=== PATIENT | male | born 1940 | race Two or more races ===

== ENCOUNTER 2019-11-30 09:18 | Emergency (ER) | payer OTHER ==
[2019-11-30 09:50] VITALS: BP 131/89; PULSE 90; TEMP 98; BMI 24.9
[2019-11-30] MEDS ORDERED: ACETAMINOPHEN 1000 MG/100 ML VIAL (NON FORMULARY) IVPB ONE (09:54)
[2019-11-30] MEDS ORDERED: SODIUM CHLORIDE 1,000 ML IV STA (09:54)
[2019-11-30] MEDS ORDERED: ACETAMINOPHEN INJECTION 100 ML IVPB ONE (10:18)
[2019-11-30 10:36] LABS: BASO % 0.2 % (0-2.0); EOS % 0.9 % (0-4.5); HEMATOCRIT 45.2 % (35.4-49); HEMOGLOBIN 15.1 GM/dL (11.7-16.9); LYMPH % 35.4 % (8-40); MCH 29.9 pg (25.7-33.7); MCHC 33.4 g/dl (32.0-35.9); MEAN CELL VOLUME 89.6 fl (80-96); MEAN PLT VOLUME 6.9 fl (7.5-11.1); MONO % 7.4 % (3.8-10.2); NEUT % 56.1 % (42.8-82.8); PLATELET COUNT 271 K/MM3 (134-434); RBC 5.04 M/mm3 (4.00-5.60); RDW 12.5 % (11.9-15.9); URINE APPEARANCE CLEAR; URINE BILIRUBIN NEGATIVE (NEGATIVE); URINE COLOR YELLOW; URINE GLUCOSE (UA) NEGATIVE (NEGATIVE); URINE KETONE NEGATIVE (NEGATIVE); URINE LEUK ESTERASE NEGATIVE (NEGATIVE); URINE NITRITE NEGATIVE (NEGATIVE); URINE PROTEIN NEGATIVE (NEGATIVE); URINE UROBILINOGEN 0.2 mg/dL (0.2-1.0); WHITE BLOOD COUNT 5.8 K/mm3 (4.0-10.0)
[2019-11-30 11:05] LABS: ALBUMIN 3.5 g/dl (3.4-5.0); BILIRUBIN,TOTAL 0.5 mg/dL (0.2-1); BLOOD UREA NITROGEN 24.3 mg/dL (7-18); CALCIUM 9.1 mg/dL (8.5-10.1); TOT PROT 7.3 g/dl (6.4-8.2)
--- NOTE | 2019-11-30 12:10 | PDOC ---
Documentation entered by Jesika Broderick SCRIBE, acting as scribe for Tressa Alejandro MD. Tressa Alejandro MD: This documentation has been prepared by the Meggan erickson Adrianna, SCRIBE, under my direction and personally reviewed by me in its entirety. I confirm that the documentation accurately reflects all work, treatment, procedures, and medical decision making performed by me. History of Present Illness - General Chief Complaint: Pain Stated Complaint: ABD. PAIN History Source: Patient - History of Present Illness Initial Comments: The patient is a 79 year old male, with a significant PMH of BPH and HTN, who presents to the ED for evaluation of groin pain for 4 months, worse in the past 4 weeks. Patient complains of a right inguinal hernia for the past 4 months, which has become progressively more painful recently. He rates his pain as a 8-9 /10 at rest, is exacerbated with walking, and he notes he has been unable to walk because of the pain. Patient endorses associated occasional nausea, diarrhea, and chills. Last night, the patient notes the pain became so severe that he could not get up, which prompted his visit to the ED for further evaluation. Denies fever, chest pain, SOB, vomit, constipation, flank pain, back pain, dysuria, hematuria. Allergies: NKA, NKDA Surgical History: None reported Social History: Denies EtOH, tobacco, or illicit drug use PCP: Dr. Marko Duran Past History - Past Medical History Allergies/Adverse Reactions: Allergies Allergy/AdvReac Type Severity Reaction Status Date / Time No Known Allergies Allergy Verified 11/30/19 09:47 Home Medications: Ambulatory Orders Ibuprofen [Motrin -] 400 mg PO TID PRN #21 tablet 11/30/19 Methocarbamol [Robaxin -] 500 mg PO BID PRN #14 tablet 11/30/19 traMADol HCL [Ultram] 25 mg PO Q8H PRN #10 tablet MDD 2 11/30/19 Review of Systems - Review of Systems Comments:: General: +Occasional chills. No fevers or weakness, no weight loss HEENT: No change in vision. No sore throat,. No ear pain CardioVascular: No chest pain or shortness of breath Respiratory: No cough, or wheezing. Gastrointestinal: +Painful right inguinal hernia, that is exacerbated with walking. +Occasional nausea. +Occasional diarrhea. No vomiting or constipation, No rectal bleeding Genitourinary: No dysuria, hematuria, or frequency Musculoskeletal: +Difficulty walking 2/2 inguinal pain. No joint or muscle swelling Neurologic: No headache, vertigo, dizziness or loss of consciousness Psychiatric: nor depression Skin: No rashes or easy bruising Endocrine: no increased thirst or abnormal weight change Allergic: no skin or latex allergy All other systems reviewed and normal *Physical Exam - Vital Signs Last Vital Signs Temp Pulse Resp BP Pulse Ox 98.0 F 90 16 131/89 97 11/30/19 09:39 11/30/19 09:39 11/30/19 09:39 11/30/19 09:39 11/30/19 09:39 - Physical Exam GENERAL: The patient is in no acute distress. HEAD: Normal with no signs of trauma. EYES: PERRLA, EOMI, sclera anicteric, conjunctiva clear. ENT: Ears normal, nares patent, oropharynx clear without exudates. Moist mucous membranes. NECK: Normal range of motion, supple without lymphadenopathy, JVD, or masses. LUNGS: Breath sounds equal, clear to auscultation bilaterally. No wheezes, and no crackles. HEART:Regular rate and rhythm, normal S1 and S2 without murmur, rub or gallop. ABDOMEN: +Right groin tenderness to palpation. Could not palpate an inguinal hernia. Soft, normoactive bowel sounds. No guarding, no rebound. EXTREMITIES: Normal range of motion, no edema. No clubbing or cyanosis. No erythema, or tenderness. NEUROLOGICAL: Cranial nerves II through XII grossly intact. Normal speech. No focal neurological deficits. MUSCULOSKELETAL: Back nontender to palpation, no CVA tenderness SKIN: Warm, Dry, normal turgor, no rashes or lesions noted. ED Treatment Course - LABORATORY CBC & Chemistry Diagram: 11/30/19 10:00 11/30/19 10:00 - ADDITIONAL ORDERS Additional order review: Laboratory Results 11/30/19 11/30/19 11/30/19 10:00 10:00 10:00 Sodium 136 Potassium 4.0 Chloride 105 Carbon Dioxide 26 Anion Gap 5 L BUN 24.3 H Creatinine 1.0 Est GFR (CKD-EPI)AfAm 83.77 Est GFR (CKD-EPI)NonAf 72.28 Random Glucose 127 H Lactic Acid 1.9 Calcium 9.1 Total Bilirubin 0.5 AST 15 ALT 31 Alkaline Phosphatase 62 Total Protein 7.3 Albumin 3.5 Urine Color Yellow Urine Appearance Clear Urine pH 5.0 Ur Specific [place] 1.027 Urine Protein Negative Urine Glucose (UA) Negative Urine Ketones Negative Urine Blood Negative Urine Nitrite Negative Urine Bilirubin Negative Urine Urobilinogen 0.2 Ur Leukocyte Esterase Negative 11/30/19 10:00 RBC 5.04 MCV 89.6 MCHC 33.4 RDW 12.5 MPV 6.9 L Neutrophils % 56.1 Lymphocytes % 35.4 Monocytes % 7.4 Eosinophils % 0.9 Basophils % 0.2 - RADIOLOGY Radiology Studies Ordered: Category Date Time Status ABDOMEN & PELVIS CT WITH CONTR [CT] Stat CT Scan 11/30/19 09:55 Ordered Radiograph Interpretation: EXAM#: TYPE/EXAM: RESULT: [id number] CT/ABDOMEN PELVIS CT WITH CONTR Right lower quadrant pain IMPRESSION: Bilateral renal cysts, as described above. Mild thickening of the urinary bladder wall likely due to arch and distention. Significantly enlarged prostate gland. Tiny fat-containing umbilical hernia. Otherwise, there is no CT evidence of an acute process in the abdomen and pelvis. Correlate clinically to determine further evaluation and follow-up. Reported By: Rohan Vieira MD 11/30/19 15:28 - Medications Given in the ED: ED Medications Discontinued Medications Generic Name Dose Route Start Last Admin Trade Name Freq PRN Reason Stop Dose Admin Acetaminophen 1,000 mg 11/30/19 09:54 11/30/19 10:29 Ofirmev Injection - IVPB 11/30/19 09:55 1,000 mg ONCE ONE Administration Medical Decision Making - Medical Decision Making 11/30/19 12:09 79-year-old male presenting to the emergency department with a complaint of right lower quadrant pain which is been present for the past 4 months. Patient presents today because his symptoms have worsened. Not associated with fevers or chills. Pain is occasionally associated with nausea, occasional vomiting, occasional diarrhea. Patient did mention his symptoms to the urologist who told him he would need to go to the hospital for follow-up. On examination Patient has right lower abdominal tenderness, no involuntary guarding, no rebound. No hernia is palpable. Testicular exam: No testicular tenderness, swelling. Uncircumcised male, no discharge, no lesions Laboratory Tests 0111/30/19 11/30/19 10:00 10:00 10:00 WBC 5.8 Hgb 15.1 Hct 45.2 Plt Count 271 BUN 24.3 H Creatinine 1.0 Urine Blood Negative Urine Nitrite Negative Ur Leukocyte Esterase Negative CT pendin11/30/19 16:25 CT demonstrates: Umbilical hernia L4, L5 degenerative changes Renal cyst All results reviewed with patient's daughter. I have asked him to follow-up with general surgery for the umbilical hernia. Have asked him to follow-up with his urologist given his CT shows an enlarged prostate. I have asked him to follow-up with a primary care physician. We will discharge with pain medications. We will asked patient to return to the ER for any other concerns or complaint Clinical impression: Umbilical hernia, initial presentation Right groin pain, initial presentation Discharge - Discharge Information Problems reviewed: Yes Clinical Impression/Diagnosis: Groin pain, chronic, right Umbilical hernia Qualifiers: Obstruction and gangrene presence: without obstruction or gangrene Qualified Code(s): K42.9 - Umbilical hernia without obstruction or gangrene Condition: Stable Disposition: HOME - Admission No - Follow up/Referral Referrals: Arnulfo Campbell [Primary Care Provider] - Madhu Avery MD [Staff Physician] - Lloyd Horton MD [Staff Physician] - - Patient Discharge Instructions Patient Printed Discharge Instructions: DI for Groin Strain, Abdominal Hernia Additional Instructions: Mr. Riya Montoya q erdht n ER sot Ju lutemi rishikoni rezultatet lonnieaja t skanimit t CT Ju do t duhet t ndiqeni me kirurgun e prgjithshm (Dr. Avery) pr hernie tuaj krthizore Ne angie isabell nj referim pr ju n K[employer] e [employer]. Daren do t'ju japin nj telefonat Ju lutemi prdorni ilae pr dhimbje si prshkruhet Kthehuni gregg n departamentin e urgjencs me symptomsDO simptoma t reja, t vazhdueshme ose prkeqsuese. Vazhdoni do edgard t prshkruar m par nancy mjeku cosme. Ju duhet t ndiqni mjekun tuaj fillestar sa m shpejt t jet e mundur n lidhje me vizitn e sotme t departamentit t urgjencs. Ju lutemi sigurohuni q mjeku juaj t rishikoj rezultatet e vlersimit aj urgjent. Faleminderit q erdht sot n departamentin e urgjencs pr kujdesin aj. Ishte knaqsi t shikoja sot. Ju lutemi doyle re se vlersimi juaj sht i PRFSHIR deri sa t ndiqni mjekun . Thank you for coming in to the ER today Please review your CT scan results You will need to follow up with the general surgeon (Dr. Avery) for your umbilical hernia We have made a referral for you to [facility]. They will give you a call Please use pain medications as prescribed Return to the emergency department immediately with ANY new, persistent or worsening symptoms. Continue any medications as previously prescribed by your physician. You should follow up with your primary doctor as soon as possible regarding today's emergency department visit. Please make sure your doctor reviews the results of your emergency evaluation. Thank you for coming to the Emergency Department today for your care. It was a pleasure to see you today. Please note that your evaluation is INCOMPLETE until you follow-up with your doctor. - Post Discharge Activity
== END 2019-11-30 17:39 | disposition home or self-care (01) ==
LOC: JER 09:18
PROC: 3E033NZ Introduction of Analgesics, Hypnotics, Sedatives into Peripheral Vein, Percutaneous Approach (ICD-10-PCS; principal; 2019-11-30)
DX: K42.9 Umbilical hernia without obstruction or gangrene (principal); N40.0 Benign prostatic hyperplasia without lower urinary tract symptoms; I10 Essential (primary) hypertension
CPT/HCPCS: 36415; 74177-TC; 80053; 81003; 83605; 85025; 87086; 96374; 99283-25; J0131; J7030; Q9967